=== PATIENT | female | born 1990 | race Caucasian/White ===

== ENCOUNTER 2018-11-22 14:27 | Emergency (ER) | payer OTHER ==
[2018-11-22 15:49] VITALS: BP 109/64
--- NOTE | 2018-11-22 16:11 | UC ---
Throat Pain/Nasal Ibrahima HPI - HPI Summary HPI Summary: 28-year-old female who has had sore throat and fever over the past few days. No known exposure to strep. - History of Current Complaint Chief Complaint: UCGeneralIllness Stated Complaint: SORE THROAT Time Seen by Provider: 11/22/18 15:50 Hx Obtained From: Patient Hx Last Menstrual Period: 01/21/16 ?: No Onset/Duration: Gradual Onset Severity: Moderate Pain Intensity: 6 Cough: Nonproductive Associated Signs & Symptoms: Positive: Fever - Allergies/Home Medications Allergies/Adverse Reactions: Allergies Allergy/AdvReac Type Severity Reaction Status Date / Time Penicillins Allergy Hives Verified 11/22/18 15:49 PMH/Surg Hx/FS Hx/Imm Hx Previously Healthy: Yes - Surgical History Surgical History: Yes Surgery Procedure, Year, and Place: hernia repair 1990, appy 2000, right ovarian cyst removal 2009, hysteroscopy w/ d&c 2011, hysteriogram 2011 - Family History Known Family History: Positive: Cardiac Disease - Social History Occupation: Employed Full-time Alcohol Use: Rare Substance Use Type: None Smoking Status (MU): Never Smoked Tobacco Review of Systems All Other Systems Reviewed And Are Negative: Yes Constitutional: Positive: Fever ENT: Positive: Sore Throat Respiratory: Positive: Cough - Occasional nonproductive cough. Is Patient Immunocompromised?: No Physical Exam Triage Information Reviewed: Yes Appearance: Well-Appearing, No Pain Distress, Well-Nourished Vital Signs: Initial Vital Signs Temp 98.3 F 11/22/18 15:45 Pulse 64 11/22/18 15:45 Resp 18 11/22/18 15:45 BP 109/64 11/22/18 15:45 Pulse Ox 100 11/22/18 15:45 Vital Signs Reviewed: Yes Eyes: Positive: Conjunctiva Clear ENT: Positive: Hearing grossly normal, Pharyngeal erythema, TMs normal, Tonsillar swelling, Tonsillar exudate, Uvula midline. Negative: Trismus, Muffled voice, Hoarse voice Neck: Positive: Supple, Nontender, Enlarged Nodes @ - Mildly enlarged bilateral tonsillar lymph nodes. Respiratory: Positive: Lungs clear, Normal breath sounds, No respiratory distress, No accessory muscle use Cardiovascular: Positive: RRR, No Murmur, Pulses Normal, Brisk Capillary Refill Abdomen Description: Positive: Nontender, No Organomegaly, Soft. Negative: CVA Tenderness (R), CVA Tenderness (L), Splenomegaly Bowel Sounds: Positive: Present Musculoskeletal Exam: Normal Neurological Exam: Normal Psychological Exam: Normal Skin Exam: Normal Throat Pain/Nasal Course/Dx - Course Course Of Treatment: Rapid strep test negative. I believe the patient may have clinical strep and going to treat her with a Z-Sadia and Motrin for pain. Change toothbrush in 24 hours. She is to follow-up with primary care provider if no improvement in 3 or 4 days. - Differential Dx/Diagnosis Provider Diagnosis: Tonsillitis Discharge ED - Sign-Out/Discharge Documenting (check all that apply): Patient Departure All imaging exams completed and their final reports reviewed: No Studies - Discharge Plan Condition: Fair Disposition: HOME Prescriptions: Azithromyxin SADIA (NF) [Z-Sadia (Zithromax) 250 mg tabs #6] 2 tab PO .TODAY, THEN 1 DAILY #6 tab Ibuprofen TAB* [Motrin TAB* 600 MG] 600 mg PO Q8H PRN #21 tab PRN Reason: Pain - Mild Patient Education Materials: Tonsillitis (ED) Forms: *Work Release Referrals: Juany Mccormack PA [Primary Care Provider] - Additional Instructions: Increase fluids, change your toothbrush in 24 hours, follow-up with your primary care provider if no improvement in 4 or 5 days. - Billing Disposition and Condition Condition: FAIR Disposition: Home
== END 2018-11-22 16:13 | disposition home or self-care (01) ==
LOC: UCCORT 14:27
DX: J03.90 Acute tonsillitis, unspecified (principal); Z88.0 Allergy status to penicillin
CPT/HCPCS: 87651; 99212; G0463